=== PATIENT | female | born 1995 | race Caucasian/White ===

== ENCOUNTER 2021-02-15 11:16 | Outpatient (CLI) | payer OTHER ==
[2021-02-16 01:13] LABS: SARS-CoV-2 PCR by NAA Not Detected (NotDetected)
== END 2021-02-15 11:17 | disposition home or self-care (01) ==
LOC: CSHLAB 11:16
PROVIDERS: ATTEND Obstetrics & Gynecology
DX: Z20.822 Contact with and (suspected) exposure to COVID-19 (principal)
CPT/HCPCS: U0003; U0005

== ENCOUNTER 2021-02-18 06:00 | Inpatient (IN) | payer OTHER ==
[2021-02-19 06:46] VITALS: BMI 23.8
[2021-02-19] MEDS ORDERED: Butorphanol Tartrate 1 MG/ML VIAL SLOW IVP PRN (07:37)
[2021-02-19] MEDS ORDERED: HYDROcodone/Acetaminophen 5/325 mg Tablet PO PRN ×4 (07:37→20:48)
[2021-02-19] MEDS ORDERED: Carboprost 250 MCG/ML AMP IM PRN (07:37)
[2021-02-19] MEDS ORDERED: Ondansetron PF 4 MG/2 ML Vial IVP PRN ×3 (07:37→20:48)
[2021-02-19] MEDS ORDERED: Methylergonovine 0.2 MG/ML VIAL IM PRN ×2 (07:37→20:48)
[2021-02-19] MEDS ORDERED: Ibuprofen 800 MG TAB PO PRN (07:37)
[2021-02-19] MEDS ORDERED: Diphenoxylate HCl/Atropine Tablet PO PRN ×2 (07:37)
[2021-02-19] MEDS ORDERED: Misoprostol 200 MCG TAB PR PRN (07:37)
[2021-02-19] MEDS ORDERED: hydrALAZINE 20 MG/ML VIAL SLOW IVP PRN ×2 (07:37→20:48)
[2021-02-19] MEDS ORDERED: Promethazine HCl 25 MG/ML VIAL IM PRN ×3 (07:37→20:48)
[2021-02-19] MEDS ORDERED: Docusate 100 MG CAP PO PRN (07:37)
[2021-02-19] MEDS ORDERED: Acetaminophen 500 MG TAB PO PRN (07:37)
[2021-02-19] MEDS ORDERED: Lidocaine 1% (PF) 30 ML VIAL SC PRN (07:37)
[2021-02-19] MEDS ORDERED: NS w/ Oxytocin 30 units 500 ML IVPB SCH (07:45)
[2021-02-19] MEDS ORDERED: NS w/ Oxytocin 30 units 500 ML IV SCH ×3 (07:45→21:30)
[2021-02-19] MEDS ORDERED: Lactated Ringer's 1,000 ML IV SCH (07:45)
[2021-02-19 08:34] LABS: Hemoglobin 12.7 g/dL (12.0-15.5); Mean Corpuscular HGB CONC 34.2 g/dL (32.0-36.0); Mean Corpuscular Volume 99.2 fl (81.6-98.3); Mean Platelet Volume 11.5 fl (7.4-10.4); Platelet Count 301 10x3/uL (150-450); RBC Distribution Width 13.8 % (11.5-14.5); Red Blood Cell (RBC) Count 3.74 10x6/uL (3.90-5.03); White Blood Cell (WBC) Count 12.3 10x3/uL (3.5-10.5)
[2021-02-19 09:21] LABS: Syphilis Antibody Nonreactive (Nonreactive); Syphilis Antibody Index 0.04 S/CO (<1.00 Non-Reactive)
[2021-02-19 09:22] LABS: Hep B Surf Ag Non-Reactive S/CO (NonReactive)
[2021-02-19 11:37] LABS: HBSAg Index 0.14 S/CO (0-0.99)
[2021-02-19] MEDS ORDERED: Fentanyl 2 mcg/Bup 0.1% Cadd 100 ML ONE (12:58)
[2021-02-19] MEDS ORDERED: Hydrocerin (Eucerin) Cream 120 gm Jar TOP PRN (13:42)
[2021-02-19] MEDS ORDERED: Acetaminophen 325 MG TAB PO PRN (13:42)
[2021-02-19] MEDS ORDERED: ePHEDrine Sulfate 50 MG/10 ML VIAL SLOW IVP PRN (13:42)
[2021-02-19] MEDS ORDERED: diphenhydrAMINE 50 MG/ML VIAL IVP PRN (13:42)
[2021-02-19] MEDS ORDERED: Naloxone HCl 0.4 mg/ml Vial IVP PRN ×2 (13:42)
[2021-02-19] MEDS ORDERED: Fentanyl 2 mcg/Bupivacaine 0.1% Cassette 100 ML EPIDURAL SCH (13:45)
[2021-02-19] MEDS ORDERED: Communication Order-Pharmacy FS SCH (13:45)
[2021-02-19] MEDS ORDERED: Lactated Ringer's 500 ML IV PRN (13:48)
[2021-02-19 18:08] LABS: SARS-CoV-2 NAA Rapid Test Not Detected (NotDetected)
[2021-02-19] MEDS ORDERED: Zolpidem Tartrate 5 MG TAB PO PRN (20:48)
[2021-02-19] MEDS ORDERED: Benzocaine-Menthol 82.5 ML CAN TOP PRN (20:48)
[2021-02-19] MEDS ORDERED: Misoprostol 200 MCG TAB VAG PRN (20:48)
[2021-02-19] MEDS ORDERED: Milk Of Magnesia 30 ML UDCUP PO PRN (20:48)
[2021-02-19] MEDS ORDERED: Varicella virus, LIVE 0.5 ML VIAL SC ONE (20:48)
[2021-02-19] MEDS ORDERED: Measles/Mumps/Rubella 10 MCG/0.5 ML VIAL SC ONE (20:48)
[2021-02-19] MEDS ORDERED: Boostrix 0.5 ML (Tdap) VIAL IM ONE (20:48)
[2021-02-19] MEDS ORDERED: Lanolin Ointment 7 GM TUBE TOP PRN (20:48)
[2021-02-19] MEDS ORDERED: Preparation H Ointment 28 GM TUBE PR PRN (20:48)
[2021-02-19] MEDS ORDERED: diphenhydrAMINE 25 MG CAP PO PRN (20:48)
[2021-02-19] MEDS ORDERED: Bisacodyl 10 MG SUPP PR PRN (20:48)
[2021-02-19] MEDS: Docusate Calcium (SURFAK) 240 MG CAP PO SCH (22:00)
[2021-02-19] MEDS: Ibuprofen 800 MG TAB PO SCH (22:03)
[2021-02-20] MEDS: Ibuprofen 800 MG TAB PO SCH ×3 (05:51→21:32)
[2021-02-20 06:44] LABS: Hemoglobin 10.4 g/dL (12.0-15.5); Mean Corpuscular HGB CONC 33.4 g/dL (32.0-36.0); Mean Corpuscular Hemoglobin 33.3 pg (27.0-33.0); Mean Corpuscular Volume 99.7 fl (81.6-98.3); Platelet Count 209 10x3/uL (150-450); RBC Distribution Width 14.1 % (11.5-14.5); Red Blood Cell (RBC) Count 3.12 10x6/uL (3.90-5.03); White Blood Cell (WBC) Count 15.7 10x3/uL (3.5-10.5)
[2021-02-20] MEDS: Ferrous Sulfate 325 MG TAB PO SCH ×2 (08:22→17:00)
[2021-02-20] MEDS: Docusate Calcium (SURFAK) 240 MG CAP PO SCH ×2 (08:23→21:32)
[2021-02-20] MEDS: Prenatal Vitamin 1 TAB PO SCH (08:23)
[2021-02-21] MEDS: Ibuprofen 800 MG TAB PO SCH (06:21)
[2021-02-21 08:10] VITALS: BP 127/71; TEMP 98.8
[2021-02-21] MEDS: Prenatal Vitamin 1 TAB PO SCH (08:38)
[2021-02-21] MEDS: Docusate Calcium (SURFAK) 240 MG CAP PO SCH (08:38)
[2021-02-21] MEDS: Ferrous Sulfate 325 MG TAB PO SCH (08:39)
== END 2021-02-21 11:00 | disposition home or self-care (01) | DRG 807 ==
LOC: CSHLD 02-19 05:30 → CSHPP 02-19 20:44
PROVIDERS: ADMIT Obstetrics & Gynecology; ATTEND Obstetrics & Gynecology
PROC: 10E0XZZ Delivery of Products of Conception, External Approach (ICD-10-PCS; principal; 2021-02-19)
PROC: 3E0P7VZ Introduction of Hormone into Female Reproductive, Via Natural or Artificial Opening (ICD-10-PCS; 2021-02-19)
DX: O80 Encounter for full-term uncomplicated delivery (principal); Z37.0 Single live birth; Z3A.39 39 weeks gestation of pregnancy; Z20.822 Contact with and (suspected) exposure to COVID-19
CPT/HCPCS: 51702; 85027; 86780; 86850; 86900; 86901; 87340; J0595; J2590; U0002